=== PATIENT | female | born 1985 | race Caucasian/White ===

== ENCOUNTER 2018-02-01 07:16 | Emergency (ER) | payer SELFPAY, OTHER ==
[2018-02-01] MEDS: METHOCARBAMOL 500 MG TAB PO (08:16)
[2018-02-01] MEDS: NAPROXEN 250 MG TAB PO (08:17)
[2018-02-01 08:28] LABS: BASO # 0.1 10^3/uL (0.0-0.2); BASO % 0.8 % (0.0-1.0); EOS # 0.5 10^3/uL (0.0-0.50); EOS % 5.9 % (0.0-3.0); HEMATOCRIT 44.1 % (36.0-47.0); HEMOGLOBIN 14.8 g/dl (12.0-15.5); IMMATURE GRANULOCYTE % 0.3 % (0-3.0); LYMPH # 2.8 10^3/uL (1.5-4.5); LYMPH % 31.3 % (24.0-44.0); MEAN CORPUSCULAR HEMOGLOBIN 30.3 pg (27.0-33.0); MEAN CORPUSCULAR HGB CONC 33.6 g/dl (32.0-36.5); MEAN CORPUSCULAR VOLUME 90.4 fl (80.0-96.0); MONO # 0.6 10^3/uL (0.0-0.8); MONO % 6.3 % (0.0-5.0); NEUTROPHILS % 55.4 % (36.0-66.0); PLATELET COUNT, AUTOMATED 272 10^3/uL (150-450); RED BLOOD COUNT 4.88 10^6/uL (4.00-5.40); RED CELL DISTRIBUTION WIDTH 12.2 % (11.5-14.5)
[2018-02-01 08:49] LABS: CONTROL LINE MONO INT CTR LINE PRESENT; MONO SCRN NEGATIVE (NEGATIVE)
[2018-02-01 08:51] LABS: ANION GAP 6 MEQ/L (8-16); BLOOD UREA NITROGEN 14 MG/DL (7-18); CALCIUM LEVEL 8.5 MG/DL (8.5-10.1); CARBON DIOXIDE LEVEL 24 MEQ/L (21-32); CHLORIDE LEVEL 111 MEQ/L (98-107); GLOMERULAR FILTRATION RATE > 60.0 (>60); GLUCOSE, FASTING 126 MG/DL (70-100); POTASSIUM SERUM 4.6 MEQ/L (3.5-5.1); SODIUM LEVEL 141 MEQ/L (136-145)
== END 2018-02-01 09:19 | disposition home or self-care (01) ==
LOC: M ED 07:16
DX: R59.9 Enlarged lymph nodes, unspecified (principal); S16.1XXA Strain of muscle, fascia and tendon at neck level, initial encounter; X58.XXXA Exposure to other specified factors, initial encounter; Y92.89 Other specified places as the place of occurrence of the external cause; F17.210 Nicotine dependence, cigarettes, uncomplicated
CPT/HCPCS: 80048

== ENCOUNTER → 2025-03-20 | Outpatient (CLI) | payer SELFPAY ==
[~2025-03-20] MED LIST: NAPR-885 PO; ROBA500T PO
[2025-03-20 15:55] LABS: BASO # 0.1 10^3/uL (0.0-0.2); BASO % 0.5 % (0.0-1.0); EOS # 0.2 10^3/uL (0.0-0.5); EOS % 1.9 % (0.0-3.0); LYMPH # 1.9 10^3/uL (1.5-5.0); LYMPH % 20.0 % (24.0-44.0); MONO # 0.5 10^3/uL (0.0-0.8); MONO % 5.6 % (2.0-8.0); NEUTROPHILS # 6.7 10^3/uL (1.5-8.5); NEUTROPHILS % 70.8 % (36.0-66.0); PLATELET COUNT, AUTOMATED 486 10^3/uL (150-450)
[2025-03-25 15:57] LABS: LYME TOTAL ANTIBODY CIA 4.89 Index (<=0.90)
[2025-03-25 17:47] LABS: LYME AB IGG BY CIA 6.01 Index (<=0.90); LYME AB IGM BY CIA 5.54 Index (<=0.90)
== END ==
LOC: M WUC 10:54
PROVIDERS: ATTEND Nurse Practitioner Family
DX: R21 Rash and other nonspecific skin eruption (principal)